=== PATIENT | female | born 1990 | race Caucasian/White ===

== ENCOUNTER 2023-07-31 02:32 | Emergency (ER) | payer OTHER ==
[2023-07-31 02:37] VITALS: BP 112/74; PULSE 72; RESP 20; TEMP 97.6; BMI 28.6
[2023-07-31] MEDS ORDERED: ACETAMINOPHEN 325 MG TABLET (FP) ONE (02:58)
[2023-07-31] MEDS: ACETAMINOPHEN 500 MG TABLET (FP) PO ONE (03:01)
== END 2023-07-31 03:19 | disposition home or self-care (01) ==
LOC: JER 02:32
DX: O99.891 Other specified diseases and conditions complicating pregnancy (principal); M25.552 Pain in left hip; G89.29 Other chronic pain; Z3A.38 38 weeks gestation of pregnancy
CPT/HCPCS: 99283-25

== ENCOUNTER 2023-08-05 07:40 | Inpatient (IN) | payer OTHER ==
[2023-08-05] MEDS ORDERED: OXYTOCIN 30 UNITS in 0.9% NS 30 UNIT/500 ML INFUS.BAG IVPB ONE (09:02)
[2023-08-05 09:05] VITALS: BMI 28.9
[2023-08-05] MEDS: MISOPROSTOL 25 MCG TABLET (COMPOUNDED BY PHARMACY) PV ONE (09:15)
[2023-08-05] MEDS: ELECTROLYTE-148 SOLN 1,000 ML IV SCH ×2 (09:57→20:55)
[2023-08-05 10:40] LABS: INR 0.88 (0.83-1.09)
[2023-08-05 10:43] LABS: ACTIVATED PTT 26.7 SECONDS (25.2-36.5)
[2023-08-05 10:49] LABS: COCAINE, UR NEGATIVE (NEGATIVE); OPIATES, URI NEGATIVE (NEGATIVE)
[2023-08-05 10:50] LABS: METHADONE, UR NEGATIVE (NEGATIVE); PHENCYCLIDINE,URINE NEGATIVE (NEGATIVE); URINE BENZODIAZEPINES NEGATIVE (NEGATIVE)
[2023-08-05 10:51] LABS: URINE AMPHETAMINES NEGATIVE (NEGATIVE); URINE BARBITURATES NEGATIVE (NEGATIVE)
[2023-08-05] MEDS ORDERED: FENTANYL/BUPIVACAINE/NS/PF - PCEA - 50 ML DISP.SYRIN EP ONE (13:51)
[2023-08-05] MEDS ORDERED: BUPIVACAINE HCL/PF 0.25% (2.5MG/ML) 10 ML VIAL ONE (13:59)
[2023-08-05] MEDS: FENTANYL/BUPIVACAINE/NS/PF - PCEA - 50 ML DISP.SYRIN EP SCH ×2 (14:20→20:55)
[2023-08-05] MEDS ORDERED: NALOXONE HCL 0.4 MG/ML VIAL IVPUSH PRN (14:52)
[2023-08-05] MEDS: OXYTOCIN 30 UNITS in 0.9% NS 30 UNIT/500 ML INFUS.BAG IVPB SCH (15:30)
[2023-08-05] MEDS ORDERED: OXYTOCIN 20 UNITS in 0.9% NS 20 UNIT/1,000 ML INFUS.BAG IV ONE (17:53)
[2023-08-05] MEDS ORDERED: LIDOCAINE HCL 1% PRESERVATIVE FREE - 30ML VIAL ONE (17:53)
[2023-08-05] MEDS: METHYLERGONOVINE MALEATE 0.2 MG/1 ML AMP IM ONE (18:20)
[2023-08-05] MEDS ORDERED: MISOPROSTOL 100 MCG TABLET ONE (18:39)
[2023-08-05] MEDS: MISOPROSTOL 200 MCG TABLET PR ONE (19:50)
[2023-08-05] MEDS ORDERED: MISOPROSTOL 200 MCG TABLET ONE (19:54)
[2023-08-05] MEDS ORDERED: ACETAMINOPHEN INJECTION 100 ML IVPB ONE (19:55)
[2023-08-05] MEDS: ACETAMINOPHEN 1000 MG/100 ML BAG IVPB ONE (20:00)
[2023-08-05] MEDS ORDERED: BENZOCAINE 28 GM HEMORRHOIDAL OINTMENT TP PRN (20:23)
[2023-08-05] MEDS ORDERED: WITCH HAZEL 50% (TUCKS) 40 PAD/JAR PAD TP PRN (20:23)
[2023-08-05] MEDS ORDERED: BISACODYL 10 MG SUPP.RECT RC PRN (20:23)
[2023-08-05] MEDS ORDERED: BENZOCAINE 20% 57 GM BOTTLE TP PRN (20:23)
[2023-08-05] MEDS: OXYTOCIN 20 UNITS in 0.9% NS 20 UNIT/1,000 ML INFUS.BAG IV SCH (20:30)
[2023-08-05 20:43] LABS: BASO % 0.3 % (0-2.0); EOS % 0.6 % (0-4.5); HEMATOCRIT 33.4 % (32.4-45.2); HEMOGLOBIN 11.3 GM/dL (10.7-15.3); LYMPH % 9.7 % (8-40); MCHC 33.9 g/dl (32.0-36.0); MEAN CELL VOLUME 94.4 fl (80-96); MEAN PLT VOLUME 9.4 fl (7.5-11.1); MONO % 5.5 % (3.8-10.2); NEUT % 83.9 % (42.8-82.8); PLATELET COUNT 159 10^3/uL (134-434); RBC 3.54 M/mm3 (3.60-5.2); RDW 13.7 % (11.6-15.6); WHITE BLOOD COUNT 14.5 K/mm3 (4.0-10.0)
[2023-08-05 21:06] LABS: POTASSIUM 3.9 mmol/L (3.5-5.1)
[2023-08-05 21:08] LABS: INR 0.89 (0.83-1.09); PROTHROMBIN TIME (PATIENT) 10.1 SEC (9.7-13.0)
[2023-08-05 21:08] LABS: BLOOD UREA NITROGEN 7.2 mg/dL (7-18)
[2023-08-05 21:11] LABS: ACTIVATED PTT 26.1 SECONDS (25.2-36.5)
[2023-08-05 21:11] LABS: CREATININE 0.5 mg/dL (0.55-1.3)
[2023-08-05 21:48] VITALS: RESP 18
[2023-08-06] MEDS: IBUPROFEN 600 MG TABLET (FP) PO PRN
[2023-08-06] MEDS: METHYLERGONOVINE MALEATE 0.2 MG TABLET (FP) PO SCH (00:03)
[2023-08-06] MEDS: oxyCODONE HCL 5 MG TABLET PO PRN (07:44)
[2023-08-06 08:19] LABS: BASO % 0.2 % (0-2.0); EOS % 0.5 % (0-4.5); HEMATOCRIT 30.8 % (32.4-45.2); HEMOGLOBIN 10.6 GM/dL (10.7-15.3); LYMPH % 9.9 % (8-40); MCH 32.2 pg (25.7-33.7); MCHC 34.4 g/dl (32.0-36.0); MEAN CELL VOLUME 93.5 fl (80-96); MEAN PLT VOLUME 9.8 fl (7.5-11.1); MONO % 7.4 % (3.8-10.2); PLATELET COUNT 134 10^3/uL (134-434); RDW 13.5 % (11.6-15.6); WHITE BLOOD COUNT 15.1 K/mm3 (4.0-10.0)
[2023-08-06] MEDS: levETIRAcetam 500 MG TABLET (FP) PO SCH (10:00)
[2023-08-06] MEDS: lamoTRIgine 25 MG TABLET PO SCH (10:00)
[2023-08-06] MEDS: FERROUS SO4 325 MG TABLET (FP) PO SCH (10:41)
[2023-08-06] MEDS: ACETAMINOPHEN 325 MG TABLET (FP) PO PRN (11:17)
[2023-08-06] MEDS: PRENATAL VITAMINS W/ FOLIC ACID TABLET (FP) PO SCH (11:17)
[2023-08-06] MEDS: SIMETHICONE 80 MG TAB.CHEW (FP) PO PRN (12:15)
[2023-08-06] MEDS: SENNOSIDES/DOCUSATE COMBO (SENNA PLUS) TABLET (UD) PO PRN (22:05)
[2023-08-07 09:32] VITALS: BP 99/60; PULSE 80; TEMP 98
== END 2023-08-07 14:20 | disposition home or self-care (01) | DRG 541 ==
LOC: JLDR 07:40 → J3W 22:40
PROVIDERS: ADMIT Obstetrics & Gynecology; ATTEND Obstetrics & Gynecology
PROC: 0KQM0ZZ Repair Perineum Muscle, Open Approach (ICD-10-PCS; principal; 2023-08-05)
PROC: 10E0XZZ Delivery of Products of Conception, External Approach (ICD-10-PCS; 2023-08-05)
PROC: 10D17ZZ Extraction of Products of Conception, Retained, Via Natural or Artificial Opening (ICD-10-PCS; 2023-08-05)
PROC: 0W3R7ZZ Control Bleeding in Genitourinary Tract, Via Natural or Artificial Opening (ICD-10-PCS; 2023-08-05)
DX: O70.1 Second degree perineal laceration during delivery (principal); Z3A.39 39 weeks gestation of pregnancy; Z37.0 Single live birth; O72.0 Third-stage hemorrhage
CPT/HCPCS: 36415; 80048; 80053; 80307; 82306; 83021; 83036; 85025; 85027; 85384; 85610; 85660; 85730; 86480; 86780; 86787; 86803; 86850; 86900; 86901; 86922; 87086; 87340; 87389; 88307-TC; J0131